=== PATIENT | female | born 1990 | race Two or more races ===

== ENCOUNTER 2016-06-21 09:22 | Emergency (ER) | payer OTHER ==
[~2016-06-21] VITALS: Ht 157.5 cm; Wt 69.9 kg
[~2016-06-21 09:22] MED LIST: AMOXICILLIN500 MG PO; ATARAX,VISTARIL25 MG PO; BENADRYL25 MG PO; BENTYL20 MG PO; BUSPAR15 MG PO; CITRATE OF MAG296 ML PO; COLACE100 MG PO; CRYSELLE1 EACH PO; DESYREL100 MG PO; INDOCIN25 MG PO; LEXAPRO20 MG PO; MIRALAX255 GM PO; MOTRIN800 MG PO; Micronor,Nor-Q-D,Err PO; Motrin PO; NAPROSYN500 MG PO; NORCO 7.5/321 TABLET PO; PERCOCET 5/31 TABLET PO; PRAZOSIN HCL1 MG PO; PREDNISONE20 MG PO; PREDNISONE50 MG PO; PROAIR HFA8.5 GM IH; TORADOL10 MG PO; TRAMADOL HCL50 MG PO; VALIUM2 MG PO; ZOFRAN ODT4 MG PO; ZOFRAN4 MG PO
[2016-06-21 10:18] LABS: EOSINOPHIL (%) 0.6 % (0-5); HEMATOCRIT 38.5 % (36.0-46.0); IMMATURE GRANULOCYTE (%) 0.2 % (0.0-0.7); INSTRUMENT ABS NEUTROPHIL CT 2.7 K/uL; LYMPHOCYTE COUNT 1.6 K/uL (1.0-2.8); MCH 31.9 PG (29.0-34.0); MCHC 33.8 G/DL (30.0-36.0); MCV 94.4 FL (83-99); MEAN PLAT.VOLUME 10.6 uM^3 (9.5-12.4); MONOCYTE (%) 9.6 % (3-12); MONOCYTE COUNT 0.5 K/uL (0-0.8); NEUTROPHIL (%) 56.6 % (45-76); NEUTROPHIL COUNT 2.7 K/uL (1.8-6.4); PLATELET COUNT 242 K/uL (156-360); RBC DIS.WIDTH-CV 12.1 % (11.8-14.6); RBC DIS.WIDTH-SD 42.1 % (39-53); RED BLOOD COUNT 4.08 M/uL (3.80-5.20); WHITE BLOOD COUNT 4.8 K/uL (4.1-10.2)
[2016-06-21 10:39] LABS: QUANTITATIVE HCG < 4.0 MIU/ML
[2016-06-21 10:44] LABS: ADD MIUA? NO; BILIRUBIN NEGATIVE; BLOOD NEGATIVE; COLOR YELLOW ((YELLOW)); GLUCOSE (STRIP) NEGATIVE; KETONES NEGATIVE; LEUKOCYTES NEGATIVE; NITRITE NEGATIVE; PROTEIN (STRIP) NEGATIVE; SPECIFIC GRAVITY 1.018 (1.000-1.030); UROBILINOGEN 0.2 MG/DL (0.2-1.0)
[2016-06-21 11:02] LABS: ANION GAP 11 MEQ/L (2-14); CHLORIDE 105 MEQ/L (99-109); POTASSIUM 4.7 MEQ/L (3.7-5.4); SAMPLE HEMOLYSIS CHECK 2; SAMPLE ICTERIC CHECK 0; SAMPLE LIPEMIA CHECK 0; SODIUM 139 MEQ/L (136-147)
[2016-06-21 11:07] LABS: GFR ESTIMATE (CALCULATED) > 59 mL/min/; GLUCOSE 83 mg/dL (70-99); UREA NITROGEN (BUN) 17 mg/dL (9-23)
[2016-06-21] MEDS ORDERED: TYLENOL WITH C1 EACH PO (14:05)
[2016-06-21 14:37] VITALS: BP 110/56
== END 2016-06-21 14:38 | disposition home or self-care (01) ==
LOC: EME 09:22
PROVIDERS: Emergency Medicine
DX: R10.9 Unspecified abdominal pain (principal); J45.909 Unspecified asthma, uncomplicated; Z72.0 Tobacco use
CPT/HCPCS: 74176; 80048; 81003; 84702; 85025; 99281; 99283; J1885; J7030

== ENCOUNTER 2016-08-10 15:27 | Emergency (ER) | payer OTHER ==
[~2016-08-10] VITALS: Ht 157.5 cm; Wt 66.1 kg
[~2016-08-10 15:27] MED LIST changes: +TYLENOL WITH C1 EACH PO
[2016-08-10 16:11] LABS: HEMATOCRIT 36.4 % (36.0-46.0); MCH 31.7 PG (29.0-34.0); MCHC 33.5 G/DL (30.0-36.0); MCV 94.5 FL (83-99); MEAN PLAT.VOLUME 9.7 uM^3 (9.5-12.4); PLATELET COUNT 205 K/uL (156-360); RBC DIS.WIDTH-SD 41.5 % (39-53); RED BLOOD COUNT 3.85 M/uL (3.80-5.20); WHITE BLOOD COUNT 5.9 K/uL (4.1-10.2)
[2016-08-10 16:14] LABS: ADD MIUA? YES; BILIRUBIN NEGATIVE; BLOOD NEGATIVE; COLOR AMBER ((YELLOW)); GLUCOSE (STRIP) NEGATIVE; KETONES NEGATIVE; LEUKOCYTES NEGATIVE; NITRITE POSITIVE; PROTEIN (STRIP) NEGATIVE; SPECIFIC GRAVITY 1.015 (1.000-1.030)
[2016-08-10 16:19] LABS: BACTERIA RARE /HPF; EPITHELIAL CELLS 1+ /HPF; MUCUS 2+ /LPF; RED BLOOD CELLS 0-5 /HPF (0-5); UCUL ADDED? NO
[2016-08-10 16:26] LABS: CHLORIDE 107 mEq/L (99-109); POTASSIUM 3.4 mEq/L (3.7-5.4); SODIUM 140 mEq/L (136-147)
[2016-08-10 16:28] LABS: GLUCOSE 97 mg/dL (70-99)
[2016-08-10 16:29] LABS: ANION GAP 9 MEQ/L (2-14)
[2016-08-10 16:30] LABS: TOTAL BILIRUBIN 0.8 mg/dL (0.0-1.0)
[2016-08-10 16:31] LABS: ALKALINE PHOSPHATASE 41 IU/L (3-129)
[2016-08-10 16:32] LABS: GFR ESTIMATE (CALCULATED) > 59 mL/min/
[2016-08-10 16:33] LABS: UREA NITROGEN (BUN) 11 mg/dL (9-23)
[2016-08-10 16:35] LABS: LIPASE 12 U/L (1.0-51.0)
[2016-08-10 16:41] LABS: QUANTITATIVE HCG < 4.0 MIU/ML
[2016-08-10] MEDS ORDERED: KEFLEX500 MG PO (17:30)
[2016-08-10] MEDS ORDERED: ZOFRAN ODT8 MG PO (17:30)
[2016-08-10 17:37] VITALS: BP 120/71
== END 2016-08-10 17:38 | disposition home or self-care (01) ==
LOC: EME 15:27
PROVIDERS: Physician Assistant
DX: N39.0 Urinary tract infection, site not specified (principal); J45.909 Unspecified asthma, uncomplicated; Z72.0 Tobacco use
CPT/HCPCS: 80053; 81003; 83690; 84702; 85027; 99281; 99284

== ENCOUNTER 2016-09-04 22:18 | Emergency (ER) | payer OTHER ==
[~2016-09-04] VITALS: Ht 157.5 cm; Wt 63.9 kg
[~2016-09-04 22:18] MED LIST changes: +KEFLEX500 MG PO; +ZOFRAN ODT8 MG PO
[2016-09-05] LABS: HEMATOCRIT 35.8 % (36.0-46.0); MCH 31.3 PG (29.0-34.0); MCHC 33.2 G/DL (30.0-36.0); MCV 94.2 FL (83-99); MEAN PLAT.VOLUME 10.4 uM^3 (9.5-12.4); PLATELET COUNT 220 K/uL (156-360); RBC DIS.WIDTH-SD 41.8 % (39-53); WHITE BLOOD COUNT 5.6 K/uL (4.1-10.2)
[2016-09-05 00:13] LABS: CHLORIDE 106 mEq/L (99-109); POTASSIUM 3.2 mEq/L (3.7-5.4); SODIUM 141 mEq/L (136-147)
[2016-09-05 00:15] LABS: GLUCOSE 95 mg/dL (70-99)
[2016-09-05 00:17] LABS: ANION GAP 10 MEQ/L (2-14); TOTAL BILIRUBIN 0.3 mg/dL (0.0-1.0)
[2016-09-05 00:19] LABS: ALKALINE PHOSPHATASE 47 IU/L (3-129); GFR ESTIMATE (CALCULATED) > 59 mL/min/
[2016-09-05 00:20] LABS: UREA NITROGEN (BUN) 19 mg/dL (9-23)
[2016-09-05 00:31] LABS: QUANTITATIVE HCG < 4.0 MIU/ML
[2016-09-05 00:51] LABS: LIPASE 29 U/L (1.0-51.0)
[2016-09-05 01:10] LABS: BILIRUBIN NEGATIVE; BLOOD NEGATIVE; COLOR YELLOW ((YELLOW)); GLUCOSE (STRIP) NEGATIVE; KETONES 5; LEUKOCYTES NEGATIVE; NITRITE NEGATIVE; PROTEIN (STRIP) 30; SPECIFIC GRAVITY 1.032 (1.000-1.030)
[2016-09-05 01:24] LABS: ADD MIUA? NO; UCUL ADDED? NO
[2016-09-05] MEDS ORDERED: MOTRIN800 MG PO (02:57)
[2016-09-05 03:07] VITALS: BP 101/69
== END 2016-09-05 03:30 | disposition home or self-care (01) ==
LOC: EME 22:18
DX: R10.32 Left lower quadrant pain (principal); J45.909 Unspecified asthma, uncomplicated; Z72.0 Tobacco use
CPT/HCPCS: 76856; 80053; 81003; 83690; 84702; 85027; 99281; 99284; J1885; J2405; J7030

== ENCOUNTER 2016-10-22 15:50 | Emergency (ER) | payer OTHER ==
[~2016-10-22] VITALS: Ht 157.5 cm; Wt 63.7 kg
[2016-10-22 15:59] VITALS: BP 125/63
[2016-10-22 16:57] LABS: CHLORIDE 105 mEq/L (99-109); POTASSIUM 3.4 mEq/L (3.7-5.4); SODIUM 139 mEq/L (136-147)
[2016-10-22 16:59] LABS: GLUCOSE 98 mg/dL (70-99); MCHC 34.1 G/DL (30.0-36.0); MCV 93.9 FL (83-99); MEAN PLAT.VOLUME 10.1 uM^3 (9.5-12.4); PLATELET COUNT 261 K/uL (156-360); RBC DIS.WIDTH-CV 12.2 % (11.8-14.6); RBC DIS.WIDTH-SD 42.3 % (39-53); RED BLOOD COUNT 3.94 M/uL (3.80-5.20)
[2016-10-22 17:01] LABS: ANION GAP 10 MEQ/L (2-14); TOTAL BILIRUBIN 0.7 mg/dL (0.0-1.0)
[2016-10-22 17:03] LABS: ALKALINE PHOSPHATASE 45 IU/L (3-129); GFR ESTIMATE (CALCULATED) > 59 mL/min/
[2016-10-22 17:04] LABS: UREA NITROGEN (BUN) 17 mg/dL (9-23)
[2016-10-22 17:06] LABS: LIPASE 15 U/L (1.0-51.0)
[2016-10-22 17:14] LABS: QUANTITATIVE HCG 1988.7 MIU/ML
[2016-10-22 17:47] LABS: ADD MIUA? YES; BILIRUBIN NEGATIVE; BLOOD NEGATIVE; COLOR YELLOW ((YELLOW)); GLUCOSE (STRIP) NEGATIVE; KETONES 5; LEUKOCYTES NEGATIVE; NITRITE NEGATIVE; PROTEIN (STRIP) NEGATIVE; SPECIFIC GRAVITY 1.028 (1.000-1.030); UROBILINOGEN 0.2 MG/DL (0.2-1.0)
[2016-10-22] MEDS ORDERED: PRENATAL VITAM1 EAC7 PO (17:58)
[2016-10-22 18:13] LABS: BACTERIA NONE SEEN /HPF; EPITHELIAL CELLS 1+ /HPF; MUCUS 4+ /LPF; RED BLOOD CELLS NONE SEEN /HPF (0-5); WHITE BLOOD CELLS NONE SEEN /HPF (0-5)
[2016-10-22] MEDS ORDERED: BENTYL20 MG PO (18:15)
[2016-10-22] MEDS ORDERED: REGLAN10 MG PO (18:15)
== END 2016-10-22 18:43 | disposition home or self-care (01) ==
LOC: EME 15:50
PROVIDERS: Physician Assistant
DX: O26.899 Other specified pregnancy related conditions, unspecified trimester (principal); R10.9 Unspecified abdominal pain; O99.280 Endocrine, nutritional and metabolic diseases complicating pregnancy, unspecified trimester; E86.0 Dehydration; Z3A.00 Weeks of gestation of pregnancy not specified; Z87.891 Personal history of nicotine dependence
CPT/HCPCS: 80053; 81003; 83690; 84702; 85027; 99281; 99283

== ENCOUNTER 2016-11-03 12:53 | Emergency (ER) | payer OTHER ==
[~2016-11-03] VITALS: Ht 157.5 cm; Wt 62.3 kg
[~2016-11-03 12:53] MED LIST changes: +PRENATAL VITAM1 EAC7 PO; +REGLAN10 MG PO
[2016-11-03 14:09] LABS: ADD MIUA? YES; BILIRUBIN NEGATIVE; BLOOD NEGATIVE; COLOR YELLOW ((YELLOW)); GLUCOSE (STRIP) NEGATIVE; KETONES NEGATIVE; LEUKOCYTES NEGATIVE; NITRITE NEGATIVE; PROTEIN (STRIP) 30; SPECIFIC GRAVITY 1.024 (1.000-1.030)
[2016-11-03 14:20] LABS: BACTERIA RARE /HPF; EPITHELIAL CELLS 1+ /HPF; MUCUS 4+ /LPF; RED BLOOD CELLS 0-5 /HPF (0-5); UCUL ADDED? NO; WHITE BLOOD CELLS 0-5 /HPF (0-5)
[2016-11-03 14:28] LABS: HEMATOCRIT 36.7 % (36.0-46.0); MCH 33.2 PG (29.0-34.0); MCHC 35.1 G/DL (30.0-36.0); MCV 94.6 FL (83-99); MEAN PLAT.VOLUME 10.4 uM^3 (9.5-12.4); PLATELET COUNT 198 K/uL (156-360); RBC DIS.WIDTH-CV 12.2 % (11.8-14.6); RBC DIS.WIDTH-SD 42.5 % (39-53); RED BLOOD COUNT 3.88 M/uL (3.80-5.20); WHITE BLOOD COUNT 3.7 K/uL (4.1-10.2)
[2016-11-03 15:28] LABS: QUANTITATIVE HCG 54782.4 MIU/ML
[2016-11-03 15:30] LABS: ANION GAP 10 MEQ/L (2-14); CHLORIDE 104 MEQ/L (99-109); POTASSIUM 3.3 MEQ/L (3.7-5.4); SAMPLE HEMOLYSIS CHECK 0; SAMPLE ICTERIC CHECK 0; SAMPLE LIPEMIA CHECK 0; SODIUM 139 MEQ/L (136-147); TOTAL BILIRUBIN 0.4 MG/DL (0.0-1.0)
[2016-11-03 15:36] LABS: ALKALINE PHOSPHATASE 42 IU/L (3-129); GFR ESTIMATE (CALCULATED) > 59 mL/min/; GLUCOSE 81 mg/dL (70-99); UREA NITROGEN (BUN) 9 mg/dL (9-23)
[2016-11-03] MEDS ORDERED: MACROBID100 MG PO (16:33)
[2016-11-03] MEDS ORDERED: ZOFRAN ODT4 MG PO (16:33)
[2016-11-03 17:22] VITALS: BP 114/60
== END 2016-11-03 17:23 | disposition home or self-care (01) ==
LOC: EME 12:53
DX: O23.41 Unspecified infection of urinary tract in pregnancy, first trimester (principal); O21.9 Vomiting of pregnancy, unspecified; E87.6 Hypokalemia; Z3A.01 Less than 8 weeks gestation of pregnancy; Z87.891 Personal history of nicotine dependence
CPT/HCPCS: 80053; 81003; 84702; 85027; 87086; 99281; 99285; J2405; J7030

== ENCOUNTER 2016-11-30 16:14 | Emergency (ER) | payer OTHER ==
[~2016-11-30] VITALS: Ht 157.5 cm; Wt 62.7 kg
[~2016-11-30 16:14] MED LIST changes: +MACROBID100 MG PO
[2016-11-30 16:51] LABS: HEMATOCRIT 34.6 % (36.0-46.0); MCH 32.3 PG (29.0-34.0); MCV 92.3 FL (83-99); PLATELET COUNT 217 K/uL (156-360); RBC DIS.WIDTH-CV 12.1 % (11.8-14.6); RBC DIS.WIDTH-SD 41.1 % (39-53); RED BLOOD COUNT 3.75 M/uL (3.80-5.20); WHITE BLOOD COUNT 8.6 K/uL (4.1-10.2)
[2016-11-30 16:59] LABS: CHLORIDE 105 mEq/L (99-109); POTASSIUM 3.6 mEq/L (3.7-5.4); SODIUM 137 mEq/L (136-147)
[2016-11-30 17:02] LABS: GLUCOSE 84 mg/dL (70-99)
[2016-11-30 17:03] LABS: ANION GAP 9 MEQ/L (2-14); TOTAL BILIRUBIN 0.3 mg/dL (0.0-1.0)
[2016-11-30 17:05] LABS: ALKALINE PHOSPHATASE 40 IU/L (3-129); GFR ESTIMATE (CALCULATED) > 59 mL/min/
[2016-11-30 17:06] LABS: UREA NITROGEN (BUN) 10 mg/dL (9-23)
[2016-11-30 17:12] LABS: ADD MIUA? YES; BILIRUBIN NEGATIVE; BLOOD NEGATIVE; COLOR YELLOW ((YELLOW)); GLUCOSE (STRIP) NEGATIVE; KETONES 5; LEUKOCYTES NEGATIVE; NITRITE NEGATIVE; PROTEIN (STRIP) 30; SPECIFIC GRAVITY 1.026 (1.000-1.030)
[2016-11-30 17:23] LABS: BACTERIA 1+ /HPF; EPITHELIAL CELLS 2+ /HPF; MUCUS 2+ /LPF; RED BLOOD CELLS 0-5 /HPF (0-5); UCUL ADDED? NO; WHITE BLOOD CELLS 0-5 /HPF (0-5)
[2016-11-30 17:31] LABS: QUANTITATIVE HCG 133144.5 MIU/ML
[2016-11-30] MEDS ORDERED: DICLEGIS DR 101 EACH PO (19:21)
[2016-11-30 19:39] VITALS: BP 127/69
== END 2016-11-30 19:41 | disposition home or self-care (01) ==
LOC: EME 16:14
PROVIDERS: Physician Assistant
DX: O21.9 Vomiting of pregnancy, unspecified (principal); O26.891 Other specified pregnancy related conditions, first trimester; R11.0 Nausea; Z3A.10 10 weeks gestation of pregnancy; Z87.891 Personal history of nicotine dependence
CPT/HCPCS: 76801; 80053; 81003; 84702; 85027; 86900; 86901; 99281; 99284; J2405; J7030

== ENCOUNTER 2017-01-09 01:00 | Emergency (ER) | payer OTHER ==
[~2017-01-09] VITALS: Ht 157.5 cm; Wt 65.0 kg
[~2017-01-09 01:00] MED LIST changes: +DICLEGIS DR 101 EACH PO
[2017-01-09 03:55] LABS: ADD MIUA? YES; BILIRUBIN NEGATIVE; BLOOD NEGATIVE; COLOR YELLOW ((YELLOW)); GLUCOSE (STRIP) NEGATIVE; KETONES NEGATIVE; LEUKOCYTES NEGATIVE; NITRITE NEGATIVE; PROTEIN (STRIP) NEGATIVE; SPECIFIC GRAVITY 1.015 (1.000-1.030); UROBILINOGEN 0.2 MG/DL (0.2-1.0)
[2017-01-09 04:08] LABS: BACTERIA 2+ /HPF; CASTS NONE SEEN /LPF; CRYSTALS NONE SEEN; EPITHELIAL CELLS 1+ /HPF; MUCUS RARE /LPF; RED BLOOD CELLS NONE SEEN /HPF (0-5); UCUL ADDED? YES; WHITE BLOOD CELLS NONE SEEN /HPF (0-5)
[2017-01-09] MEDS ORDERED: MACROBID100 MG PO (04:13)
[2017-01-09 04:34] VITALS: BP 104/60
== END 2017-01-09 04:35 | disposition home or self-care (01) ==
LOC: EME 01:00
DX: O23.42 Unspecified infection of urinary tract in pregnancy, second trimester (principal); O99.89 Other specified diseases and conditions complicating pregnancy, childbirth and the puerperium; M54.31 Sciatica, right side; O99.512 Diseases of the respiratory system complicating pregnancy, second trimester; J45.909 Unspecified asthma, uncomplicated; O99.342 Other mental disorders complicating pregnancy, second trimester; F32.9 Major depressive disorder, single episode, unspecified; F43.10 Post-traumatic stress disorder, unspecified; Z87.891 Personal history of nicotine dependence; Z3A.17 17 weeks gestation of pregnancy
CPT/HCPCS: 81003; 87086; 99281; 99284

== ENCOUNTER 2017-02-21 17:54 | Emergency (ER) | payer OTHER ==
[~2017-02-21] VITALS: Ht 157.5 cm; Wt 67.6 kg
[2017-02-21 18:16] LABS: HEMATOCRIT 33.5 % (36.0-46.0); MCH 33.7 PG (29.0-34.0); MCHC 34.9 G/DL (30.0-36.0); MCV 96.5 FL (83-99); MEAN PLAT.VOLUME 10.1 uM^3 (9.5-12.4); PLATELET COUNT 208 K/uL (156-360); RBC DIS.WIDTH-CV 12.4 % (11.8-14.6); RBC DIS.WIDTH-SD 43.5 % (39-53); RED BLOOD COUNT 3.47 M/uL (3.80-5.20)
[2017-02-21 18:25] LABS: CHLORIDE 108 mEq/L (99-109); POTASSIUM 3.6 mEq/L (3.7-5.4); SODIUM 136 mEq/L (136-147)
[2017-02-21 18:27] LABS: GLUCOSE 100 mg/dL (70-99)
[2017-02-21 18:28] LABS: ANION GAP 7 MEQ/L (2-14)
[2017-02-21 18:29] LABS: TOTAL BILIRUBIN 0.5 mg/dL (0.0-1.0)
[2017-02-21 18:31] LABS: ALKALINE PHOSPHATASE 51 IU/L (3-129); GFR ESTIMATE (CALCULATED) > 59 mL/min/
[2017-02-21 18:32] LABS: UREA NITROGEN (BUN) 6 mg/dL (9-23)
[2017-02-21] MEDS ORDERED: ZOFRAN ODT4 MG PO (20:24)
[2017-02-21] MEDS ORDERED: PHENERGAN25 MG PR (20:24)
[2017-02-21 20:54] VITALS: BP 127/66
== END 2017-02-21 20:55 | disposition home or self-care (01) ==
LOC: EME 17:54
DX: O21.9 Vomiting of pregnancy, unspecified (principal); O99.282 Endocrine, nutritional and metabolic diseases complicating pregnancy, second trimester; E86.0 Dehydration; O26.892 Other specified pregnancy related conditions, second trimester; R42 Dizziness and giddiness; Z3A.22 22 weeks gestation of pregnancy; O99.512 Diseases of the respiratory system complicating pregnancy, second trimester; J45.909 Unspecified asthma, uncomplicated; O99.342 Other mental disorders complicating pregnancy, second trimester; F32.9 Major depressive disorder, single episode, unspecified; F43.10 Post-traumatic stress disorder, unspecified; F41.0 Panic disorder [episodic paroxysmal anxiety]; Z87.891 Personal history of nicotine dependence
CPT/HCPCS: 80053; 81003; 84702; 85027; 99281; 99284; J2405; J7030

== ENCOUNTER 2017-03-04 01:58 | Outpatient (CLI) | payer OTHER ==
[~2017-03-04 01:58] MED LIST changes: +PHENERGAN25 MG PR
[2017-03-04 02:19] VITALS: BP 113/56
[2017-03-04 04:18] LABS: AMPHETAMINE NEGATIVE (500 ng/mL); BARBITURATES NEGATIVE (200 ng/mL); BENZODIAZEPINES NEGATIVE (150 ng/mL); COCAINE NEGATIVE (150 ng/mL); INTERNAL CONTROLS VALID? YES; METHADONE NEGATIVE (200 ng/mL); METHAMPHETAMINE NEGATIVE (500 ng/mL); OPIATES (MORPHINE) NEGATIVE (100 ng/mL); OXYCODONE NEGATIVE (100 ng/mL); PHENCYCLIDINE NEGATIVE (25 ng/mL); PROPOXYPHENE NEGATIVE (300 ng/mL); THC CANNABINOIDS NEGATIVE (50 ng/mL); TRICYCLIC ANTIDEPRESSANTS NEGATIVE (300 ng/mL)
== END 2017-03-04 03:45 | disposition home or self-care (01) ==
LOC: LDRP-OP 01:58 → 2WEST 01:59
PROVIDERS: Advanced Practice Midwife
DX: O26.892 Other specified pregnancy related conditions, second trimester (principal); Z3A.23 23 weeks gestation of pregnancy
CPT/HCPCS: 59025; G0378

== ENCOUNTER 2017-04-06 16:06 | Outpatient (CLI) | payer OTHER ==
[2017-04-06 16:22] VITALS: BP 114/63
[2017-04-06 19:56] LABS: CANDIDA DNA PROBE NEGATIVE; GARDNERELLA DNA PROBE POSITIVE; TRICHOMONAS DNA PROBE NEGATIVE
== END 2017-04-06 17:20 | disposition home or self-care (01) ==
LOC: LDRP-OP 16:06 → 2WEST 16:08 → LDRP-OP 07-28 04:00
PROVIDERS: Advanced Practice Midwife
DX: O26.892 Other specified pregnancy related conditions, second trimester (principal); Z3A.23 23 weeks gestation of pregnancy
CPT/HCPCS: 59025; 87480; 87510; 87660; G0378

== ENCOUNTER 2017-04-24 17:08 | Outpatient (CLI) | payer OTHER ==
[~2017-04-24] VITALS: Ht 157.5 cm; Wt 77.1 kg
[2017-04-24 17:59] VITALS: BP 119/71
[2017-04-24 18:10] LABS: APPEARANCE CLEAR ((CLEAR)); BILIRUBIN NEGATIVE; BLOOD NEGATIVE; COLOR STRAW ((YELLOW)); GLUCOSE (STRIP) NEGATIVE; KETONES NEGATIVE; LEUKOCYTES NEGATIVE; NITRITE NEGATIVE; PROTEIN (STRIP) NEGATIVE; SPECIFIC GRAVITY 1.009 (1.000-1.030); UROBILINOGEN 0.2 MG/DL (0.2-1.0)
[2017-04-24 19:50] VITALS: BP 112/62
[2017-04-24 20:58] LABS: CANDIDA DNA PROBE NEGATIVE; GARDNERELLA DNA PROBE NEGATIVE; TRICHOMONAS DNA PROBE NEGATIVE
== END 2017-04-24 20:00 | disposition home or self-care (01) ==
LOC: LDRP-OP 17:08 → 2WEST 17:09 → LDRP-OP 07-24 20:36
PROVIDERS: Advanced Practice Midwife; Obstetrics & Gynecology
DX: O26.893 Other specified pregnancy related conditions, third trimester (principal); N89.8 Other specified noninflammatory disorders of vagina; Z86.19 Personal history of other infectious and parasitic diseases; O99.343 Other mental disorders complicating pregnancy, third trimester; F32.9 Major depressive disorder, single episode, unspecified; F43.10 Post-traumatic stress disorder, unspecified; Z3A.31 31 weeks gestation of pregnancy
CPT/HCPCS: 59025; 81003; 82731; 87086; 87480; 87510; 87660; G0378

== ENCOUNTER 2017-05-20 19:45 | Outpatient (CLI) | payer OTHER ==
[2017-05-20 19:59] VITALS: BP 120/74
[2017-05-20 20:34] LABS: APPEARANCE SL.HAZY ((CLEAR)); BILIRUBIN NEGATIVE; BLOOD NEGATIVE; COLOR YELLOW ((YELLOW)); GLUCOSE (STRIP) NEGATIVE; KETONES NEGATIVE; LEUKOCYTES NEGATIVE; NITRITE NEGATIVE; PROTEIN (STRIP) NEGATIVE; SPECIFIC GRAVITY 1.017 (1.000-1.030)
[2017-05-20 20:42] LABS: BACTERIA RARE /HPF; EPITHELIAL CELLS 1+ /HPF; MUCUS TRACE /LPF; RED BLOOD CELLS 0-5 /HPF (0-5); UCUL ADDED? NO; WHITE BLOOD CELLS 0-5 /HPF (0-5)
[2017-05-20 22:35] LABS: CANDIDA DNA PROBE NEGATIVE; GARDNERELLA DNA PROBE NEGATIVE; TRICHOMONAS DNA PROBE NEGATIVE
== END 2017-05-20 21:15 | disposition home or self-care (01) ==
LOC: LDRP-OP 19:45 → 2WEST 19:48 → LDRP-OP 07-24 21:10
PROVIDERS: Advanced Practice Midwife
DX: O47.03 False labor before 37 completed weeks of gestation, third trimester (principal); O26.892 Other specified pregnancy related conditions, second trimester; N89.8 Other specified noninflammatory disorders of vagina; Z3A.34 34 weeks gestation of pregnancy
CPT/HCPCS: 59025; 81003; 87480; 87510; 87660; G0378

== ENCOUNTER 2017-05-22 08:02 | Outpatient (CLI) | payer OTHER ==
[2017-05-22 09:40] LABS: APPEARANCE CLEAR ((CLEAR)); BILIRUBIN NEGATIVE; BLOOD NEGATIVE; COLOR STRAW ((YELLOW)); GLUCOSE (STRIP) NEGATIVE; KETONES NEGATIVE; LEUKOCYTES NEGATIVE; NITRITE NEGATIVE; PROTEIN (STRIP) NEGATIVE; SPECIFIC GRAVITY 1.005 (1.000-1.030); UROBILINOGEN 0.2 MG/DL (0.2-1.0)
== END 2017-05-22 09:20 | disposition home or self-care (01) ==
LOC: LDRP-OP 08:02 → 2WEST 08:03 → LDRP-OP 07-24 21:28
PROVIDERS: Advanced Practice Midwife
DX: O26.893 Other specified pregnancy related conditions, third trimester (principal); M54.9 Dorsalgia, unspecified; Z3A.35 35 weeks gestation of pregnancy
CPT/HCPCS: 59025; 81003; G0378

== ENCOUNTER 2017-05-22 23:18 | Outpatient (CLI) | payer OTHER ==
[2017-05-22 23:50] VITALS: BP 113/57
[2017-05-23 01:59] VITALS: BP 93/49
== END 2017-05-23 02:30 | disposition home or self-care (01) ==
LOC: LDRP-OP 23:18 → 2WEST 23:19 → LDRP-OP 07-24 09:29
DX: O26.893 Other specified pregnancy related conditions, third trimester (principal); M54.5 Low back pain; Z3A.35 35 weeks gestation of pregnancy
CPT/HCPCS: 59025; G0378; J7030

== ENCOUNTER 2017-05-25 17:19 | Outpatient (CLI) | payer OTHER ==
[~2017-05-25] VITALS: Ht 157.5 cm; Wt 72.6 kg
[2017-05-25 17:36] VITALS: BP 110/57
[2017-05-25] MEDS ORDERED: IRON325 M1 PO (17:50)
== END 2017-05-25 18:48 | disposition home or self-care (01) ==
LOC: LDRP-OP 17:19 → 2WEST 17:20 → LDRP-OP 07-24 02:45
DX: O26.893 Other specified pregnancy related conditions, third trimester (principal); R10.2 Pelvic and perineal pain; Z3A.35 35 weeks gestation of pregnancy
CPT/HCPCS: 59025; G0378

== ENCOUNTER 2017-06-02 17:01 | Outpatient (CLI) | payer OTHER ==
[~2017-06-02 17:01] MED LIST changes: +IRON325 M1 PO
[2017-06-02 17:38] VITALS: BP 108/59
== END 2017-06-02 19:20 | disposition home or self-care (01) ==
LOC: LDRP-OP 17:01 → 2WEST 17:02 → LDRP-OP 07-24 19:10
DX: O47.03 False labor before 37 completed weeks of gestation, third trimester (principal); Z3A.36 36 weeks gestation of pregnancy
CPT/HCPCS: 59025; G0378

== ENCOUNTER 2017-06-11 20:43 | Outpatient (CLI) | payer OTHER ==
[2017-06-11 21:08] VITALS: BP 112/65
[2017-06-11 21:44] LABS: APPEARANCE CLEAR ((CLEAR)); BILIRUBIN NEGATIVE; BLOOD SMALL; COLOR STRAW ((YELLOW)); GLUCOSE (STRIP) NEGATIVE; KETONES NEGATIVE; LEUKOCYTES NEGATIVE; NITRITE NEGATIVE; PROTEIN (STRIP) NEGATIVE; SPECIFIC GRAVITY 1.002 (1.000-1.030); UROBILINOGEN 0.2 MG/DL (0.2-1.0)
[2017-06-11 21:53] LABS: BACTERIA RARE /HPF; EPITHELIAL CELLS RARE /HPF; MUCUS TRACE /LPF; RED BLOOD CELLS 0-5 /HPF (0-5); UCUL ADDED? NO; WHITE BLOOD CELLS 0-5 /HPF (0-5)
== END 2017-06-11 22:25 | disposition home or self-care (01) ==
LOC: LDRP-OP 20:43 → 2WEST 20:44 → LDRP-OP 07-25 20:07
PROVIDERS: Advanced Practice Midwife
DX: O26.893 Other specified pregnancy related conditions, third trimester (principal); Z3A.38 38 weeks gestation of pregnancy
CPT/HCPCS: 59025; 81003; G0378

== ENCOUNTER 2017-06-16 19:46 | Outpatient (CLI) | payer OTHER ==
[2017-06-16 19:55] VITALS: BP 123/78
== END 2017-06-16 20:35 | disposition home or self-care (01) ==
LOC: LDRP-OP 19:46 → 2WEST 19:47 → LDRP-OP 07-25 22:48
DX: O47.1 False labor at or after 37 completed weeks of gestation (principal); O99.013 Anemia complicating pregnancy, third trimester; O22.43 Hemorrhoids in pregnancy, third trimester; O99.343 Other mental disorders complicating pregnancy, third trimester; F43.10 Post-traumatic stress disorder, unspecified; F41.9 Anxiety disorder, unspecified; F32.9 Major depressive disorder, single episode, unspecified; Z3A.38 38 weeks gestation of pregnancy
CPT/HCPCS: 59025; G0378

== ENCOUNTER 2017-06-20 05:35 | Outpatient (CLI) | payer OTHER ==
[2017-06-20 05:48] VITALS: BP 120/66
== END 2017-06-20 06:28 | disposition home or self-care (01) ==
LOC: LDRP-OP 05:35 → 2WEST 05:36 → LDRP-OP 07-25 21:15
DX: O26.893 Other specified pregnancy related conditions, third trimester (principal); Z3A.39 39 weeks gestation of pregnancy
CPT/HCPCS: 59025; G0378

== ENCOUNTER 2017-06-22 16:30 | Outpatient (CLI) | payer OTHER ==
[~2017-06-22] VITALS: Ht 157.5 cm; Wt 77.0 kg
[2017-06-22 16:59] VITALS: BP 124/78
[2017-06-22 18:23] LABS: BASOPHIL (%) 0.3 % (0-1); EOSINOPHIL (%) 0.7 % (0-5); EOSINOPHIL COUNT 0.1 K/uL (0-0.3); HEMATOCRIT 32.7 % (36.0-46.0); IMMATURE GRANULOCYTE (%) 0.4 % (0.0-0.7); LYMPHOCYTE (%) 21.2 % (15-42); LYMPHOCYTE COUNT 1.6 K/uL (1.0-2.8); MCH 32.3 PG (29.0-34.0); MCHC 33.6 G/DL (30.0-36.0); MCV 95.9 FL (83-99); MONOCYTE (%) 8.4 % (3-12); MONOCYTE COUNT 0.6 K/uL (0-0.8); NEUTROPHIL COUNT 5.2 K/uL (1.8-6.4); PLATELET COUNT 209 K/uL (156-360); RBC DIS.WIDTH-CV 13.4 % (11.8-14.6); RBC DIS.WIDTH-SD 46.9 % (39-53); RED BLOOD COUNT 3.41 M/uL (3.80-5.20); WHITE BLOOD COUNT 7.5 K/uL (4.1-10.2)
[2017-06-22 19:30] VITALS: BP 130/73
== END 2017-06-22 22:00 | disposition home or self-care (01) ==
LOC: LDRP-OP 16:30 → 2WEST 16:31 → LDRP-OP 07-25 06:30
PROVIDERS: Advanced Practice Midwife
DX: O26.893 Other specified pregnancy related conditions, third trimester (principal); R10.9 Unspecified abdominal pain; Z3A.39 39 weeks gestation of pregnancy; W23.0XXA Caught, crushed, jammed, or pinched between moving objects, initial encounter; Y99.0 Civilian activity done for income or pay
CPT/HCPCS: 59025; 76805; 85025; 86850; 86900; 86901; G0378

== ENCOUNTER 2017-06-24 00:38 | Outpatient (CLI) | payer OTHER ==
[~2017-06-24] VITALS: Ht 157.5 cm; Wt 76.5 kg
[2017-06-24 00:57] VITALS: BP 115/72
== END 2017-06-24 01:41 | disposition home or self-care (01) ==
LOC: LDRP-OP 00:38 → 2WEST 00:39 → LDRP-OP 07-25 23:36
DX: O47.1 False labor at or after 37 completed weeks of gestation (principal); Z3A.39 39 weeks gestation of pregnancy
CPT/HCPCS: 59025; G0378

== ENCOUNTER 2017-06-27 07:36 | Inpatient (IN) | payer OTHER ==
[~2017-06-27] VITALS: Ht 162.6 cm; Wt 76.8 kg
[2017-06-27] VITALS (12 sets, daily range): BP systolic 106–145; BP diastolic 59–82
[2017-06-27 10:09] LABS: AMPHETAMINE NEGATIVE (500 ng/mL); BARBITURATES NEGATIVE (200 ng/mL); BENZODIAZEPINES NEGATIVE (150 ng/mL); BUPRENORPHINE NEGATIVE (10 ng/mL); COCAINE NEGATIVE (150 ng/mL); METHADONE NEGATIVE (200 ng/mL); METHAMPHETAMINE NEGATIVE (500 ng/mL); OPIATES (MORPHINE) NEGATIVE (100 ng/mL); OXYCODONE NEGATIVE (100 ng/mL); PHENCYCLIDINE NEGATIVE (25 ng/mL); PROPOXYPHENE NEGATIVE (300 ng/mL); THC CANNABINOIDS NEGATIVE (50 ng/mL); TRICYCLIC ANTIDEPRESSANTS NEGATIVE (300 ng/mL)
[2017-06-27 10:17] LABS: BASOPHIL (%) 0.2 % (0-1); EOSINOPHIL (%) 0.5 % (0-5); HEMATOCRIT 31.4 % (36.0-46.0); HEMOGLOBIN 10.5 G/DL (11.9-15.5); IMMATURE GRANULOCYTE (%) 0.4 % (0.0-0.7); LYMPHOCYTE (%) 21.9 % (15-42); LYMPHOCYTE COUNT 1.2 K/uL (1.0-2.8); MCH 31.3 PG (29.0-34.0); MCHC 33.4 G/DL (30.0-36.0); MCV 93.7 FL (83-99); MONOCYTE (%) 10.6 % (3-12); MONOCYTE COUNT 0.6 K/uL (0-0.8); NEUTROPHIL (%) 66.4 % (45-76); NEUTROPHIL COUNT 3.6 K/uL (1.8-6.4); PLATELET COUNT 214 K/uL (156-360); RBC DIS.WIDTH-CV 13.4 % (11.8-14.6); RED BLOOD COUNT 3.35 M/uL (3.80-5.20); WHITE BLOOD COUNT 5.5 K/uL (4.1-10.2)
[2017-06-28] VITALS (8 sets, daily range): BP systolic 104–138; BP diastolic 53–84
[2017-06-28 07:26] LABS: BASOPHIL (%) 0.1 % (0-1); EOSINOPHIL (%) 0.1 % (0-5); HEMATOCRIT 25.7 % (36.0-46.0); HEMOGLOBIN 8.7 G/DL (11.9-15.5); IMMATURE GRANULOCYTE (%) 0.3 % (0.0-0.7); LYMPHOCYTE (%) 12.7 % (15-42); LYMPHOCYTE COUNT 1.4 K/uL (1.0-2.8); MCH 32.1 PG (29.0-34.0); MCHC 33.9 G/DL (30.0-36.0); MCV 94.8 FL (83-99); MONOCYTE (%) 7.3 % (3-12); MONOCYTE COUNT 0.8 K/uL (0-0.8); NEUTROPHIL (%) 79.5 % (45-76); PLATELET COUNT 164 K/uL (156-360); RBC DIS.WIDTH-CV 13.5 % (11.8-14.6); RBC DIS.WIDTH-SD 46.2 % (39-53); RED BLOOD COUNT 2.71 M/uL (3.80-5.20); WHITE BLOOD COUNT 11.3 K/uL (4.1-10.2)
[2017-06-28] MEDS ORDERED: IRON325 M1 PO (08:30)
[2017-06-28] MEDS ORDERED: ENDOCET 5-3251 EACH PO (08:30)
[2017-06-28] MEDS ORDERED: MOTRIN600 MG PO (08:30)
[2017-06-29 02:45] VITALS: BP 116/57
[2017-06-29 07:20] VITALS: BP 132/83
[2017-06-29 11:25] VITALS: BP 118/76
[2017-06-29 15:46] VITALS: BP 106/62
[2017-06-29 23:12] VITALS: BP 141/87
[2017-06-30 01:24] VITALS: BP 121/65
[2017-06-30 07:22] VITALS: BP 130/73
== END 2017-06-30 13:20 | disposition home or self-care (01) | DRG 765 ==
LOC: LDRP-OP 07:36 → 2WEST 07:37 → LDRP-OP 16:24 → 2WEST 20:52 → LDRP-OP 07-25 02:10
PROVIDERS: Obstetrics & Gynecology
PROC: 10D00Z1 Extraction of Products of Conception, Low, Open Approach (ICD-10-PCS; principal; 2017-06-27)
PROC: 3E033VJ Introduction of Other Hormone into Peripheral Vein, Percutaneous Approach (ICD-10-PCS; principal; 2017-06-27)
PROC: 3E0P7VZ Introduction of Hormone into Female Reproductive, Via Natural or Artificial Opening (ICD-10-PCS; principal; 2017-06-27)
DX: O76 Abnormality in fetal heart rate and rhythm complicating labor and delivery (principal); D62 Acute posthemorrhagic anemia; D50.9 Iron deficiency anemia, unspecified; O99.02 Anemia complicating childbirth; Z37.0 Single live birth; O48.0 Post-term pregnancy; Z3A.40 40 weeks gestation of pregnancy; L53.9 Erythematous condition, unspecified; R33.9 Retention of urine, unspecified
CPT/HCPCS: 85025; 86850; 86900; 86901; 86920; 88307; J0595; J0690; J1170; J1885; J2274; J2405; J2590; J7120